=== PATIENT | female | born 1975 | race African-American/Black ===

== ENCOUNTER 2019-02-25 04:59 | Emergency (ER) | payer OTHER ==
[2019-02-25] MEDS ORDERED: Morphine 4 MG/ML VIAL ONE (05:23)
[2019-02-25] MEDS ORDERED: Ondansetron PF 4 MG/2 ML Vial ONE (05:23)
[2019-02-25 05:33] LABS: Bacteria/HPF 3+ HPF (None Seen); Bilirubin Negative (Negative); Blood, Urine 2+ (Negative); Clarity Turbid (Clear); Glucose, Urine (Dipstick) Normal (Negative); Leukocyte 500 Leu/uL (Negative); Nitrite Negative (Negative); Protein, Urine (Dipstick) 30 mg/dL (Neg-Trace); Urobilinogen Normal mg/dL (Less than 2); WBC/HPF Greater than 50 HPF (0-3)
[2019-02-25 05:40] LABS: BHCG - Serum Negative (NEGATIVE); Pregs Control Background? CLEAR/WHITE (CLR/WHITE); Pregs Control Bar Appear? YES (CONTROL BAR)
[2019-02-25 05:51] LABS: #Basophils 0.1 thou/uL (0.0-0.2); #Eosinphils 0.3 thou/uL (0.0-0.7); #Lymphocytes 4.1 thou/uL (1.20-3.40); #Monocytes 0.8 thou/uL (0.11-0.59); #Neutrophils 7.5 thou/uL (1.40-6.50); %Basophils 0.6 % (0.0-1.0); %Eosinophils 2.5 % (0.0-10.0); %Monocytes 6.1 % (0.0-10.0); %Neutrophils 58.8 % (42.0-75.0); Band 4 % (5-11); Eosinophils 2 % (0-10); Hemoglobin 9.4 g/dL (12.0-16.0); Hypochromia SLIGHT = 6-15 cells (100X) (0-5/hpf); Lymphocytes 32 % (21-51); MDiff Complete? YES; Mean Corpuscular HGB CONC 29.7 g/dL (32.0-36.0); Mean Corpuscular Hemoglobin 21.4 pg (27.0-31.0); Mean Corpuscular Volume 71.8 fL (78.0-98.0); Mean Platelet Volume 10.5 fL (7.4-10.4); Microcytosis SLIGHT = 6-15 cells (100X) (0-5/hpf); Monocytes 6 % (0-10); Neutrophil 56 % (42-75); Platelet Count 352 thou/uL (130-400); Platelet Morphology Comment Appears Adequate; RBC Distribution Width 18.1 % (11.5-14.5); White Blood Cell (WBC) Count 12.8 thou/uL (4.8-10.8)
[2019-02-25] MEDS ORDERED: cefTRIAXone\\ROCEPHIN 2 GM VIAL ONE (05:58)
[2019-02-25 05:59] LABS: ALT (SGPT) 15 U/L (8-55); AST (SGOT) 19 U/L (5-34); Alkaline Phosphatase 73 U/L (40-110); Anion Gap 15 mmol/L (10-20); BUN (Urea Nitrogen) 9 mg/dL (7.0-18.7); Bilirubin, Total 0.2 mg/dL (0.2-1.2); Calc. Creatinine Clearance 0 mL/min (70-130); Calcium 9.1 mg/dL (7.8-10.44); Carbon Dioxide 22 mmol/L (22-29); Chloride 101 mmol/L (98-107); Estimated GFR-MDRD 69; Globulin 3.5 g/dL (2.4-3.5); Glucose 91 mg/dL (70-105); Lipase 43 U/L (8-78); Potassium 3.8 mmol/L (3.5-5.1); Protein, Total 7.5 g/dL (6.0-8.3); Sodium 134 mmol/L (136-145)
[2019-02-25] MEDS ORDERED: Azithromycin 250 MG TAB ONE (06:01)
[2019-02-25] MEDS ORDERED: Famotidine 20 MG TAB ONE (06:33)
[2019-02-25] MEDS ORDERED: Mag-Al 1200 mg/1200 mg/30 ML UDCUP ONE (06:33)
[2019-02-25] MEDS ORDERED: Lidocaine Viscous Sol 2% 15 ml UD Cup ONE (06:33)
--- NOTE | 2019-02-25 09:59 | CT ---
PRELIMINARY REPORT/[facility]/EMERGENCY AFTER HOURS PROCEDURE: PROCEDURE INFORMATION: Exam: CT Abdomen and pelvis with contrast Exam date and time: 02/25/2019 5:47 AM Clinical history: 44 years old, female; Abdominal pain; Localized; Patient HX: Er 9. 44 y/o F present s to ED C/O lower abd pain that began at 2300 last night. PT was evaluated by her pcp yesterday for u rinary symptoms including urine output changes, noting urinary hesitancy and decr urine output TECHNIQUE: Imaging protocol: Computed tomography of the abdomen and pelvis with intravenous contrast. COMPARISON: No relevant prior studies available. FINDINGS: Lungs: No consolidations in the lung bases. Liver: No liver masses. Gallbladder and bile ducts: Surgical changes of cholecystectomy. No ductal dilation. Incidental dropp ed clip posterior medial aspect of the liver. Pancreas: No pancreatic mass or ductal dilation. Spleen: No splenic masses. Adrenals: Left adrenal gland nodule measuring approximately 2.8 cm. Kidneys and ureters: No nephroureterolithiasis or hydronephrosis. Stomach and bowel: Small hiatal hernia.No evidence of obstruction or bowel wall thickening. Colonic diverticulosis without evidence of acute diverticulitis. Appendix: Normal appendix. Intraperitoneal space: No free air or free fluid. Vasculature: No abdominal aortic aneurysm. Lymph nodes: No lymphadenopathy. Bladder: Diffuse bladder wall thickening and pericystic inflammation. Reproductive: Normal appearance of the uterus and adnexa. Clip or calcification adjacent to the anter ior uterus. Bones/joints: No suspicious bone lesions. Degenerative disc L5-S1. Soft tissues: No acute findings. IMPRESSION: 1. Marked irregular wall thickening and inflammation of the bladder consistent with cystitis. 2. No nephroureterolithiasis or hydronephrosis. 3. Left adrenal gland nodule. Defer to on-site Radiologist for follow-up recommendations. Thank you for allowing us to participate in the care of your patient. Dictated and Authenticated by: Shelley Smart MD 02/25/2019 6:30 AM Central Time ([place] & [place]) FINAL REPORT EMERGENT AFTER HOURS CT ABDOMEN AND PELVIS WITH IV CONTRAST: HISTORY: Lower abdominal pain and flank pain. Urinary hesitancy and decreased urine output. COMPARISON: None. IMPRESSION: 1. Urinary bladder is decompressed with evidence of wall thickening and adjacent inflammatory change s. Findings are suggestive of cystitis. Correlation with urinalysis is recommended. 2. No evidence of hydronephrosis. 3. Post cholecystectomy changes. 4. No CT evidence of appendicitis. 5. Colonic diverticulosis. 6. Let adrenal nodule which cannot be further characterized on this postcontrast-enhanced CT scan ex amination. This adrenal nodule measures 2.[address] scan examination following the adrena l mass protocol is recommended for further evaluation. 7. Tiny hiatal hernia. 8. Degenerative changes lumbosacral junction with evidence of bilateral pars defects present at this level. There is no anterolisthesis present. 9. Enlargement of the liver in craniocaudal dimensions which measures 22.8 cm. 10. Findings are in agreement with the preliminary report by [facility]. CODE T POS: OFF
[2019-02-25] MEDS ORDERED: Iopamidol 370 76% 100 ML VIAL ONE (13:03)
== END 2019-02-25 06:22 | disposition home or self-care (01) ==
LOC: ERS 04:59
DX: N39.0 Urinary tract infection, site not specified (principal)
CPT/HCPCS: 74177; 80053; 81003; 81015; 83690; 84703; 85025; 96365; 96375; J0696; J2270; J2405; Q9967

== ENCOUNTER 2022-04-30 13:36 | Emergency (ER) | payer OTHER ==
[2022-04-30] MEDS ORDERED: Ketorolac Tromethamine 30 MG/ML VIAL ONE (14:19)
[2022-04-30 14:38] LABS: #Basophils 0.1 thou/uL (0.0-0.2); #Eosinphils 0.1 thou/uL (0.0-0.7); #Lymphocytes 2.7 thou/uL (1.20-3.40); #Neutrophils 13.1 thou/uL (1.40-6.50); %Basophils 0.7 % (0.0-1.0); %Eosinophils 0.5 % (0.0-10.0); %Lymphocytes 15.8 % (21.0-51.0); %Neutrophils 76.9 % (42.0-75.0); Hemoglobin 12.9 g/dL (12.0-16.0); Mean Corpuscular HGB CONC 32.4 g/dL (32.0-36.0); Mean Corpuscular Hemoglobin 28.8 pg (27.0-31.0); Mean Corpuscular Volume 88.9 fl (78.0-98.0); Mean Platelet Volume 9.6 fL (7.4-10.4); Platelet Count 227 10x3/uL (130-400); Red Blood Cell (RBC) Count 4.47 mill/uL (4.20-5.40)
[2022-04-30 14:54] LABS: Anion Gap 15 mmol/L (10-20); BUN (Urea Nitrogen) 7 mg/dL (7.0-18.7); Calc. Creatinine Clearance 0 mL/min (70-130); Carbon Dioxide 25 mmol/L (22-29); Chloride 101 mmol/L (98-107); Potassium 4.2 mmol/L (3.5-5.1); Sodium 137 mmol/L (136-145)
[2022-04-30 14:55] LABS: ALT (SGPT) 34 U/L (8-55); AST (SGOT) 27 U/L (5-34); Albumin 4.2 g/dL (3.5-5.0); Alkaline Phosphatase 111 U/L (40-110); Bilirubin, Total 0.8 mg/dL (0.2-1.2); Estimated GFR 58; Globulin 3.3 g/dL (2.4-3.5); Glucose 122 mg/dL (70-105); Protein, Total 7.5 g/dL (6.0-8.3)
[2022-04-30] MEDS ORDERED: Lidocaine 1% w/Epinephrine 1:100K 20 ML VIAL ONE (15:05)
[2022-04-30] MEDS ORDERED: Boostrix 0.5 ML (Tdap) VIAL (>/=7 yrs of age) ONE (15:05)
[2022-04-30 15:30] LABS: SARS-CoV-2 NAA Rapid Test Not Detected (NotDetected)
[2022-04-30] MEDS ORDERED: HYDROcodone/Acetaminophen 10/325 mg Tablet ONE (15:36)
== END 2022-04-30 17:30 | disposition home or self-care (01) ==
LOC: ERS 13:36
DX: L02.91 Cutaneous abscess, unspecified (principal); L03.90 Cellulitis, unspecified; B34.9 Viral infection, unspecified; Z20.822 Contact with and (suspected) exposure to COVID-19
CPT/HCPCS: 10061; 36415; 80053; 83605; 85025; 87070; 87077; 87081; 87186; 87205; 87430; 90471; 90715; 96372; J1885

== ENCOUNTER 2022-05-02 10:46 | Emergency (ER) | payer OTHER ==
[2022-05-02] MEDS ORDERED: Ketorolac Tromethamine 30 MG/ML VIAL ONE (11:59)
[2022-05-02 12:23] LABS: #Eosinphils 0.3 thou/uL (0.0-0.7); #Monocytes 0.5 thou/uL (0.11-0.59); #Neutrophils 6.5 thou/uL (1.40-6.50); %Basophils 0.2 % (0.0-1.0); %Eosinophils 2.7 % (0.0-10.0); %Neutrophils 70.1 % (42.0-75.0); Hemoglobin 12.5 g/dL (12.0-16.0); Mean Corpuscular HGB CONC 32.7 g/dL (32.0-36.0); Mean Corpuscular Hemoglobin 29.6 pg (27.0-31.0); Mean Corpuscular Volume 90.6 fl (78.0-98.0); Mean Platelet Volume 9.4 fL (7.4-10.4); Platelet Count 225 10x3/uL (130-400); Red Blood Cell (RBC) Count 4.23 mill/uL (4.20-5.40); White Blood Cell (WBC) Count 9.3 10x3/uL (4.8-10.8)
[2022-05-02 12:37] LABS: ALT (SGPT) 35 U/L (8-55); AST (SGOT) 26 U/L (5-34); Albumin 3.7 g/dL (3.5-5.0); Alkaline Phosphatase 100 U/L (40-110); Anion Gap 14 mmol/L (10-20); BUN (Urea Nitrogen) 14 mg/dL (7.0-18.7); Bilirubin, Total 0.3 mg/dL (0.2-1.2); Calc. Creatinine Clearance 0 mL/min (70-130); Calcium 9.2 mg/dL (7.8-10.44); Carbon Dioxide 26 mmol/L (22-29); Chloride 102 mmol/L (98-107); Estimated GFR 59; Globulin 3.9 g/dL (2.4-3.5); Glucose 111 mg/dL (70-105); Potassium 3.9 mmol/L (3.5-5.1); Protein, Total 7.6 g/dL (6.0-8.3); Sodium 138 mmol/L (136-145)
[2022-05-02] MEDS ORDERED: Iopamidol-370 76% 500 ML 1 ML ONE (13:22)
== END 2022-05-02 13:13 | disposition home or self-care (01) ==
LOC: ERS 10:46
DX: L03.313 Cellulitis of chest wall (principal)
CPT/HCPCS: 36415; 71260; 80053; 83605; 85025; 96374; J1885; Q9967

== ENCOUNTER 2023-04-26 11:53 | Outpatient (CLI) | payer MEDICAID, OTHER | END 2023-04-26 11:54 | disposition home or self-care (01) | LOC: BICMAMMO 11:53 | PROVIDERS: ATTEND Student in an Organized Health Care Education/Training Program | DX: Z12.31 Encounter for screening mammogram for malignant neoplasm of breast (principal) | CPT/HCPCS: 77067 ==

== ENCOUNTER 2025-05-14 13:30 | Inpatient (IN) | payer OTHER ==
[2025-05-14 13:54] VITALS: BMI 65.2
[2025-05-21] MEDS ORDERED: Scopolamine 1 mg/72 hour Patch ONE (07:19)
[2025-05-21] MEDS ORDERED: Enoxaparin 40 MG (0.4 mL) SYRINGE ONE (07:19)
[2025-05-21] MEDS ORDERED: PROPOFOL 20 ML ONE ×2 (07:54→09:26)
[2025-05-21] MEDS ORDERED: Rocuronium Bromide 10 MG/ML (10ML VIAL) ONE (07:54)
[2025-05-21] MEDS ORDERED: fentaNYL PF 100 MCG/2 ML SYRINGE ONE (08:37)
[2025-05-21] MEDS ORDERED: Bupivacaine 0.25% HCL 30 ML VIAL ONE (08:45)
[2025-05-21] MEDS ORDERED: Ondansetron PF 4 MG/2 ML Vial ONE (09:13)
[2025-05-21] MEDS ORDERED: SUGAMMADEX SODIUM 200 MG/2 ML VIAL ONE (09:15)
[2025-05-21] MEDS ORDERED: hydrALAZINE 20 MG/ML VIAL SLOW IVP PRN (11:06)
[2025-05-21] MEDS ORDERED: Ondansetron PF 4 MG/2 ML Vial IVP PRN (11:06)
[2025-05-21] MEDS ORDERED: Glucagon 1 MG/ML KIT IM PRN (11:06)
[2025-05-21] MEDS ORDERED: oxyCODONE 5 MG TAB PO PRN (11:06)
[2025-05-21] MEDS ORDERED: diphenhydrAMINE 50 MG/ML VIAL IVP PRN (11:06)
[2025-05-21] MEDS ORDERED: Dextrose 50% Abboject 50 ML SYRINGE SLOW IVP PRN (11:06)
[2025-05-21] MEDS: D5 1/2 NS w/20 mEq KCL 1,000 ML IV SCH (13:48)
[2025-05-21] MEDS ORDERED: Ketorolac Tromethamine 30 MG (1 mL) VIAL ONE (13:48)
[2025-05-21] MEDS: Ketorolac Tromethamine 30 MG (1 mL) VIAL IVP SCH (13:49)
[2025-05-21] MEDS: Cyclobenzaprine 10 MG TAB PO SCH (15:00)
[2025-05-21] MEDS ORDERED: HYDROmorphone 0.5 MG/0.5 ML SYRINGE ONE (15:00)
[2025-05-22] MEDS: Enoxaparin 40 MG (0.4 mL) SYRINGE SC SCH (09:08)
[2025-05-22] MEDS: Pantoprazole 40 MG VIAL IVP SCH (09:08)
[2025-05-22 10:52] VITALS: TEMP 97.7
[2025-05-22 15:51] VITALS: BP 102/73
== END 2025-05-22 17:46 | disposition home or self-care (01) | DRG 621 ==
LOC: SURG A 05-21 06:44 → SURG B 05-21 17:32
PROVIDERS: ADMIT Surgery; ATTEND Surgery
PROC: 0DB64Z3 Excision of Stomach, Percutaneous Endoscopic Approach, Vertical (ICD-10-PCS; principal; 2025-05-21)
PROC: 8E0W4CZ Robotic Assisted Procedure of Trunk Region, Percutaneous Endoscopic Approach (ICD-10-PCS; 2025-05-21)
DX: E66.01 Morbid (severe) obesity due to excess calories (principal); E11.9 Type 2 diabetes mellitus without complications; I10 Essential (primary) hypertension; K21.9 Gastro-esophageal reflux disease without esophagitis; M17.0 Bilateral primary osteoarthritis of knee; M54.41 Lumbago with sciatica, right side; M54.42 Lumbago with sciatica, left side; Z98.51 Tubal ligation status; Z79.899 Other long term (current) drug therapy; Z79.84 Long term (current) use of oral hypoglycemic drugs
CPT/HCPCS: 36416; 88307; J0169; J0665; J0694; J1100; J1171; J1650; J1885; J2405; J2470; J2704; J3010; J3480; S2900